=== PATIENT | female | born 1990 | race Caucasian/White ===

== ENCOUNTER → 2016-08-28 | Outpatient (CLI) | payer BC ==
[~2016-08-28] MED LIST: ADIPEX-P37.5 M1 PO; DEPO-PROVER150 MG/M1 IM; IMITREX 25 MG T25 M1 PO; [UNRECOGNIZED DRUG - OTHER]
--- NOTE | ~2016-08-28 | EKG ---
[place] [address] [facility] [place] [address] ELECTROCARDIOGRAM REPORT Name: HOANG VOGEL Room #: REG CLKeyur Em#: [id number] Admission: 08/28/16 Attend Phys: Physician not on staff Discharge: Date of : 88 Report #: [id number] THIS REPORT FOR: //name// [facility] Test Date: 2016-08-28 Test Time: 13:41:52 Pat Name: HOANG VOGEL Department: Room: Gender: F Outdoor Landscape Architect: Robert BROWNING : 1990 Requested By: Physician staff Order Number: [id number] MD: Jamie Landa Measurements Intervals [place] Rate: 69 P: 35 SC: 122 QRS: 43 QRSD: 93 T: 40 QT: 406 QTc: 435 Interpretive Statements Sinus rhythm Poor R. progression No previous ECG available for comparison Electronically Signed On 08-29-2016 7:52:38 WOOL SACKER by Jamie Landa [email or web address] <ELECTRONICALLY SIGNED> By: Jamie Landa MD, [facility] 08/29/16 0752 1341 1341 Jamie Landa MD, FACC /EPI
== END ==
LOC: CV 13:11
DX: Z01.810 Encounter for preprocedural cardiovascular examination (principal)

== ENCOUNTER 2017-08-08 20:15 | Inpatient (IN) | payer BC ==
[~2017-08-08] VITALS: Ht 165.1 cm; Wt 157.9 kg
--- NOTE | ~2017-08-08 | 2DMMODE ---
[facility] [address] [place] [address] 2 D/M-MODE ECHOCARDIOGRAM Name: HOANG VOGEL Room #: 170-11 ADM IN M.R.#: [id number] Admission: 08/08/17 Attend Phys: Belinda Ryan Discharge: Date of : 88 Date of Service: 08/09/17 1258 Report #: [id number] THIS REPORT FOR: //name// APPROVED REPORT Study performed: 08/09/2017 12:34:11 EXAM: Comprehensive 2D, Doppler, and color-flow Echocardiogram Patient Location: ER Room #: 11 Status: routine BSA: 2.48 HR: 90 bpm BP: 104/56 mmHg Other Information Study Quality: Fair Indications PSVT, Increased Troponin 2D Dimensions LVEF(%): 58.82 (>50%) IVSd: 10.95 (7-11mm) LVOT Diam: 21.06 (18-24mm) LVDd: 45.94 mm PWd: 10.65 (7-11mm) Ascending Ao: 28.56 (22-36mm) LVDs: 31.67 (25-40mm) Aortic Root: 28.92 mm IVC: 18.00 mm Martino's LVEF: 58.82 % Aortic Valve AoV Peak Fco.: 1.42 m/s AO Peak Gr.: 8.09 mmHg LVOT Max P.43 mmHg LVOT Max V: 0.93 m/s CAROL Vmax: 2.27 cm2 Pulmonary Valve PV Peak Fco.: 1.01 m/s PV Peak Gr.: 4.06 mmHg Left Ventricle The left ventricle is normal size. Regional wall motion is not well visualized but grossly normal. There is normal left ventricular wall thickness. The left ventricular systolic function is normal. The left ventricular ejection fraction is within the normal range. LVEF is 55-60%. This study is not technically sufficient to allow evaluation [facility] [place] [address] 2 D/M-MODE ECHOCARDIOGRAM Name: HOANG VOGEL Room #: 170-11 ADM IN M.R.#: [id number] Admission: 08/08/17 Attend Phys: Belinda Ryan Discharge: Date of : 88 Date of Service: 08/09/17 1258 Report #: [id number] of the LV diastolic function. Right Ventricle The right ventricle is normal size. The right ventricular systolic function is normal. Atria The left atrium size is normal. The right atrium size is normal. Aortic Valve The aortic valve is normal in structure. No aortic regurgitation is present. There is no aortic valvular stenosis. Mitral Valve The mitral valve is normal in structure. There is no mitral valve regurgitation noted. No evidence of mitral valve stenosis. Tricuspid Valve The tricuspid valve is normal in structure. There is no tricuspid valve stenosis. There is no tricuspid valve regurgitation noted. Pulmonic Valve The pulmonary valve is normal in structure. There is no pulmonic valvular regurgitation. Great Vessels The aortic root is normal in size. IVC is normal in size and collapses >50% with inspiration. Pericardium There is no pericardial effusion. <Conclusion> Technically difficult study The left ventricular systolic function is normal. LVEF is 55-60%. The aortic valve is normal in structure. No aortic regurgitation or stenosis The mitral valve is normal in structure. No mitral valve regurgitation noted. [facility] [place] [address] 2 D/M-MODE ECHOCARDIOGRAM Name: HOANG VOGEL Room #: 170-11 ADM IN M.R.#: [id number] Admission: 08/08/17 Attend Phys: Belinda Ryan Discharge: Date of : 88 Date of Service: 08/09/171257 Report #: [id number] Pulmonary artery pressure could not be reliably ascertained There is no pericardial effusion. <ELECTRONICALLY SIGNED> By: Jamie Landa MD, FACC 08/09/171257 57 57 Jamie Landa MD, FACC /INF
--- NOTE | ~2017-08-08 | EKG ---
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
[2017-08-08 20:16] VITALS: BP 141/69
[2017-08-08] MEDS ORDERED: EFFEXOR XR75 MG PO (20:26)
[2017-08-08] MEDS ORDERED: PROPRANOLOL 1010 MG PO (20:26)
[2017-08-08] MEDS ORDERED: VYVANSE50 M1 PO (20:26)
[2017-08-08 21:54] LABS: MCV 77.9 fL (80.0-100.0)
[2017-08-08 21:55] LABS: CALCIUM 9.1 mg/dL (8.5-10.1); CREATININE 0.7 mg/dL (0.6-1.0); HEMATOCRIT 42.2 % (37.0-47.0); HEMOGLOBIN 13.9 gm/dL (12.0-15.0); MCH 25.7 pg (26.0-34.0); MCHC 32.9 g/dL (28.0-37.0); POTASSIUM 4.1 mmol/L (3.5-5.1); RBC 5.41 mil/uL (4.20-5.00); RDW 15.2 % (10.5-14.5)
[2017-08-08 21:57] LABS: WBC 14.8 thou/uL (4.0-11.0)
[2017-08-08 22:00] LABS: APTT 25.1 Seconds (24.5-32.8); PROTIME 10.4 Seconds (9.3-11.4)
[2017-08-08 22:04] LABS: ALBUMIN 3.5 g/dL (3.4-5.0); TOTAL BILIRUBIN 0.4 mg/dL (<0.1-1.0); TOTAL PROTEIN 6.6 g/dL (6.4-8.2); TROPONIN-I 0.14 ng/mL (<0.06)
[2017-08-08 22:45] LABS: ANISOCYTOSIS 2+; MICROCYTES 1+; POLYCHROMASIA OCCASIONAL
[2017-08-08 22:46] LABS: POIKILOCYTOSIS SLIGHT
[2017-08-08 22:52] LABS: PLATELET COUNT 337 thou/uL (150-400)
[2017-08-09 05:56] LABS: HEMOGLOBIN 12.2 gm/dL (12.0-15.0); MCH 25.7 pg (26.0-34.0); MCHC 32.1 g/dL (28.0-37.0); MCV 79.9 fL (80.0-100.0); RBC 4.75 mil/uL (4.20-5.00); RDW 15.8 % (10.5-14.5); WBC 11.7 thou/uL (4.0-11.0)
[2017-08-09 06:15] LABS: CALCIUM 8.5 mg/dL (8.5-10.1); CREATININE 0.6 mg/dL (0.6-1.0); POTASSIUM 4.1 mmol/L (3.5-5.1); TROPONIN-I 0.49 ng/mL (<0.06)
[2017-08-09 10:00] VITALS: BP 128/72
[2017-08-09 14:18] VITALS: BP 128/72
[2017-08-09 14:45] VITALS: BP 94/48
[2017-08-09 16:00] VITALS: BP 100/65
[2017-08-09 16:11] LABS: GLYCOHEMOGLOBIN (HGB A1C) 5.3 % (4.8-5.6)
[2017-08-09 19:05] VITALS: BP 89/45
[2017-08-09 23:57] VITALS: BP 103/63
[2017-08-10 03:45] VITALS: BP 111/71
[2017-08-10 08:45] VITALS: BP 116/69
[2017-08-10] MEDS ORDERED: CEFUROXIME500 MG PO (09:14)
[2017-08-10] MEDS ORDERED: TOPROL XL100 MG PO (09:14)
[2017-08-10 12:17] VITALS: BP 116/69
[2017-08-10 12:21] VITALS: BP 120/75
== END 2017-08-10 12:57 | disposition home or self-care (01) | DRG 308 ==
LOC: ER 20:15 → EROBS 22:27 → 3W 08-09 15:12
PROVIDERS: Emergency Medicine; Hospitalist; Nurse Practitioner Family
PROC: 5A2204Z Restoration of Cardiac Rhythm, Single (ICD-10-PCS; principal; 2017-08-08)
DX: I47.1 Supraventricular tachycardia (principal); J18.9 Pneumonia, unspecified organism; Z68.43 Body mass index [BMI] 50.0-59.9, adult; G43.909 Migraine, unspecified, not intractable, without status migrainosus; F41.9 Anxiety disorder, unspecified; F32.9 Major depressive disorder, single episode, unspecified; G47.33 Obstructive sleep apnea (adult) (pediatric); E66.9 Obesity, unspecified; F50.81 Binge eating disorder
CPT/HCPCS: 10879